=== PATIENT | male | born 1930 | race Caucasian/White ===

== ENCOUNTER 2017-01-11 08:14 | Day surgery (SDC) | payer OTHER, MEDICARE ==
[2017-01-10 14:28] VITALS: BMI 24.2
[2017-01-11 10:10] VITALS: TEMP 97.2
[2017-01-11 11:05] VITALS: BP 140/83; PULSE 88
== END 2017-01-11 11:05 | disposition home or self-care (01) ==
LOC: JASU-ENDO 08:14
PROVIDERS: ATTEND Internal Medicine Gastroenterology
PROC: 0W3P8ZZ Control Bleeding in Gastrointestinal Tract, Via Natural or Artificial Opening Endoscopic (ICD-10-PCS; principal; 2017-01-11 09:30)
DX: D50.9 Iron deficiency anemia, unspecified (principal); K57.30 Diverticulosis of large intestine without perforation or abscess without bleeding; K63.89 Other specified diseases of intestine

== ENCOUNTER 2017-01-25 07:42 | Day surgery (SDC) | payer OTHER, MEDICARE ==
[2017-01-24 14:27] VITALS: BMI 24.1
[2017-01-25] MEDS ORDERED: PROPOFOL 20 ML ONE (09:20)
[2017-01-25] MEDS ORDERED: LIDOCAINE HCL/PF 2% SDV 5ML VIAL ONE (09:20)
[2017-01-25 09:48] VITALS: TEMP 97.5
[2017-01-25 10:39] VITALS: BP 125/71; PULSE 84
--- NOTE | 2017-01-26 14:21 | PATH ---
Surgical Pathology Report Patient Name: JOSE A ERICKSON [facility]. Rec. #: [id number] /Age/Gender: 1930 (Age: 86) / M Account: [id number] Location: [facility]-ENDOSCOPY Taken: 01/25/2017 Received: 01/25/2017 Reported: 01/26/2017 Physicians: Julius Méndez M.D. Specimen(s) Received A: BX DISTAL ANTRAL ULCER B: BX EROSION IN BODY C: BX IRREGULAR Z-LINE Clinical History Iron deficiency anemia, dysphagia 2 cm hiatal hernia, ulcers and erosion in stomach, irregular Z-line, Ernie's erosion Final Diagnosis A. STOMACH, DISTAL ANTRUM, ULCER, BIOPSY: GASTRIC ANTRAL MUCOSA WITH ACTIVE MODERATE CHRONIC GASTRITIS WITH REACTIVE GASTROPATHY AND SURFACE EROSION. IMMUNOSTAIN FOR H. PYLORI IS POSITIVE FOR ORGANISMS (MANY ORGANISMS). B. STOMACH, BODY, EROSION, BIOPSY: FOCALLY ULCERATED GASTRIC OXYNTIC MUCOSA WITH ACTIVE MARKED CHRONIC GASTRITIS. IMMUNOSTAIN FOR H. PYLORI IS POSITIVE FOR ORGANISMS (MODERATE NUMBER OF ORGANISMS). C. IRREGULAR Z-LINE, BIOPSY: SQUAMOCOLUMNAR JUNCTIONAL MUCOSA WITH ACTIVE AND CHRONIC INFLAMMATION AND REFLUX TYPE CHANGES. NO INTESTINAL METAPLASIA (JAY'S ESOPHAGUS) IDENTIFIED. Electronically Signed Alejo Nichole M.D. Gross Description A. Received in formalin, labeled "biopsy distal antral ulcer" are 2 hess, irregular portions of soft tissue averaging 0.2 cm in greatest dimension. The specimens are submitted in toto in one cassette. B. Received in formalin, labeled "biopsy erosion in body" is a hess, irregular portion of soft tissue measuring 0.3 cm in greatest dimension. The specimen is submitted in toto in one cassette. C. Received in formalin, labeled "biopsy irregular Z-line" is a hess, irregular portion of soft tissue measuring 0.9 cm in greatest dimension. The specimen is submitted in toto in one cassette. 01/25/201701/25/2017
== END 2017-01-25 10:42 | disposition home or self-care (01) ==
LOC: JASU-ENDO 07:42
PROVIDERS: ATTEND Internal Medicine Gastroenterology
PROC: 0DB68ZX Excision of Stomach, Via Natural or Artificial Opening Endoscopic, Diagnostic (ICD-10-PCS; principal; 2017-01-25 09:00)
DX: R13.10 Dysphagia, unspecified (principal); D50.9 Iron deficiency anemia, unspecified; K25.9 Gastric ulcer, unspecified as acute or chronic, without hemorrhage or perforation; K44.9 Diaphragmatic hernia without obstruction or gangrene
CPT/HCPCS: 88305-TC; 88342-TC